=== PATIENT | female | born 1960 | race Caucasian/White ===

== ENCOUNTER 2017-08-16 11:01 | Emergency (ER) | payer OTHER, BC ==
[~2017-08-16] VITALS: Ht 167.6 cm; Wt 58.1 kg
[2017-08-16] MEDS ORDERED: IBUPROFEN 400 MG TABLET. PO ONE (12:00)
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
[2017-08-16] MEDS ORDERED: TRAM-48 PO (12:48)
[2017-08-16] MEDS ORDERED: IBUP800T19 PO (12:48)
[2017-08-16 12:51] VITALS: BP 147/82
== END 2017-08-16 12:58 | disposition home or self-care (01) ==
LOC: ER 11:01
DX: S16.1XXA Strain of muscle, fascia and tendon at neck level, initial encounter (principal); S39.012A Strain of muscle, fascia and tendon of lower back, initial encounter; V40.6XXA Car passenger injured in collision with pedestrian or animal in traffic accident, initial encounter; Y93.89 Activity, other specified; Y99.8 Other external cause status; Y92.488 Other paved roadways as the place of occurrence of the external cause
CPT/HCPCS: 72125; 72131; 99284-25